=== PATIENT | female | born 1955 | race Caucasian/White ===

== ENCOUNTER 2016-09-01 12:46 | Inpatient (IN) | payer OTHER ==
[~2016-09-01] VITALS: Ht 165.1 cm; Wt 73.5 kg
[~2016-09-01 12:46] MED LIST: ADVIL200 MG PO; AMLODIPINE BESYL5 MG PO; ASPIRIN325 MG PO; ATROVENT H200 INHALA IH; BACTRIM,SEPT1 TABLET PO; BUPROPION XL300 MG PO; CALCIUM 500 +1 EACH PO; CALCIUM 500 MG1 EACH PO; CALCIUM 600 +1 EA12 PO; CALCIUM PO; CLONAZEPAM2 MG PO; CLORAZEPATE DI7.5 MG PO; COLACE100 MG PO; COMPAZINE10 MG PO; DAPSONE25 MG PO; DEXAMETHASONE4 MG PO; ELIQUIS2.5 MG PO; ESCITALOPRAM OX20 MG PO; FOLIC ACID1 MG PO; FUROSEMIDE20 MG PO; FUROSEMIDE80 MG PO; GABAPENTIN600 MG PO; HEPARIN SO5000 UNITS SC; HI-CAL1000 ML PO; K-DUR20 MEQ PO; K-TAB10 MEQ PO; KEFLEX500 MG PO; KLONOPIN0.5 M1 PO; LAMICTAL ODT50 MG PO; LAMICTAL25 MG PO; LASIX40 MG PO; LASIX80 MG PO; LEVOTHYROXINE50 MCG PO; LEVOXYL75 MCG PO; LEXAPRO10 MG PO; LEXAPRO20 MG PO; LOVENOX40 MG/0.4 SC; MIRTAZAPINE15 MG PO; MORPHINE SULFAT15 M1 PO; MORPHINE SULFAT15 MG PO; MORPHINE SULFAT45 MG PO; MORPHINE SULFAT60 MG PO; MS CONTIN,ORAMO30 MG PO; MULTIPLE VITAM1 EACH PO; NEURONTIN100 MG PO; NIFEDIPINE ER30 MG PO; OMEPRAZOLE40 M1 PO; OXYCODONE-ACET1 EACH PO; PERCOCET 5/31 TABLET PO; POLYETHYLENE GL17 GM PO; POTASSIUM CHLO10 ME3 PO; POTASSIUM CHLO20 ME1 PO; POTASSIUM CHLO20 ME2 PO; PRAVASTATIN SOD20 MG PO; PRILOSEC40 MG PO; PROCHLORPERAZIN10 MG PO; REMERON15 M2 PO; REQUIP1 MG PO; REVLIMID10 MG PO; RISPERDAL0.5 MG PO; RISPERIDONE1 MG PO; ROXICODONE5 MG PO; SENOKOT S,PE1 TABLET PO; SODIUM BICARBO325 MG PO; SYNTHROID75 MCG PO; TRAMADOL HCL50 MG PO; TRAZODONE HCL100 MG PO; TYLENOL REGULA325 MG PO; VALIUM5 MG PO; VENLAFAXINE HCL75 M3 PO; VITAMIN D1000 INTUN PO; VITAMIN D31000 UNIT PO; WELLBUTRIN SR150 MG PO; WOMEN'S DAILY1 EAC4 PO; XANAX0.5 MG PO; ZOFRAN4 MG PO; ZOVIRAX400 MG PO
[2016-09-01 13:46] LABS: CHLORIDE 100 mEq/L (99-109); POTASSIUM 3.9 mEq/L (3.7-5.4); SODIUM 137 mEq/L (136-147)
[2016-09-01 13:47] LABS: EOSINOPHIL (%) 0 % (0-5); HEMATOCRIT 27.5 % (36.0-46.0); IMMATURE GRANULOCYTE (%) 4.7 % (0.0-0.7); IMMATURE GRANULOCYTE COUNT 0.3 K/uL; INSTRUMENT ABS NEUTROPHIL CT 5.2 K/uL; LYMPHOCYTE COUNT 0.3 K/uL (1.0-2.8); MCH 39.7 PG (29.0-34.0); MCHC 31.6 G/DL (30.0-36.0); MCV 125.6 FL (83-99); MONOCYTE (%) 2.5 % (3-12); MONOCYTE COUNT 0.2 K/uL (0-0.8); NEUTROPHIL (%) 87.9 % (45-76); NEUTROPHIL COUNT 5.2 K/uL (1.8-6.4); NRBC (%) 0.7 /100 WBC (0-0); RBC DIS.WIDTH-CV 14.8 % (11.8-14.6); RBC DIS.WIDTH-SD 68.3 % (39-53); RED BLOOD COUNT 2.19 M/uL (3.80-5.20)
[2016-09-01 13:48] LABS: GLUCOSE 98 mg/dL (70-99)
[2016-09-01 13:49] LABS: ANION GAP 11 MEQ/L (2-14)
[2016-09-01 13:50] LABS: TOTAL BILIRUBIN 0.5 mg/dL (0.0-1.0)
[2016-09-01 13:51] LABS: ALKALINE PHOSPHATASE 78 IU/L (3-129)
[2016-09-01 13:52] LABS: GFR ESTIMATE (CALCULATED) 41 mL/min/
[2016-09-01 13:53] LABS: UREA NITROGEN (BUN) 26 mg/dL (9-23)
[2016-09-01 14:00] LABS: ADD MIUA? YES; BILIRUBIN NEGATIVE; BLOOD NEGATIVE; COLOR YELLOW ((YELLOW)); GLUCOSE (STRIP) NEGATIVE; KETONES NEGATIVE; LEUKOCYTES NEGATIVE; NITRITE NEGATIVE; PROTEIN (STRIP) NEGATIVE; SPECIFIC GRAVITY 1.008 (1.000-1.030); UROBILINOGEN 0.2 MG/DL (0.2-1.0)
[2016-09-01 14:03] LABS: BACTERIA RARE /HPF; EPITHELIAL CELLS 1+ /HPF; MUCUS NONE SEEN /LPF; RED BLOOD CELLS 0-5 /HPF (0-5); UCUL ADDED? NO; WHITE BLOOD CELLS 0-5 /HPF (0-5)
[2016-09-01 15:02] LABS: ABS NEUTROPHIL COUNT 5.4; ANISOCYTOSIS 2+; ATYPICAL LYMPHOCYTE 1.8 %; BAND NEUTROPHILS 28.9 % (0-8.0); EOSINOPHIL ABS CT 0; IMM.PLATELET FRACTION 9.4 (1-7); LYMPHOCYTES 1.8 % (15.0-45.0); MACROCYTES 1+; METAMYELOCYTES 2.6 %; MICROCYTOSIS 1+; MYELOCYTES 0.9 %; OVALOCYTES 2+; PLAT.SUFFICIENCY SIGNIFICANTDECREASED; POIKILOCYTOSIS 1+; POLYCHROMASIA 1+; SEG.NEUTROPHILS 61.4 % (46.0-76.0); TEAR DROP CELLS 1+; TOXIC GRANULATION 1+
[2016-09-01 15:12] LABS: PLATELET COUNT 14 K/uL (156-360)
[2016-09-01 16:00] LABS: INFLUENZA A VIRAL ANTIGEN NEGATIVE; INFLUENZA B VIRAL ANTIGEN NEGATIVE
[2016-09-01] MEDS ORDERED: [UNRECOGNIZED DRUG - OTHER] TP (16:40)
[2016-09-01] MEDS ORDERED: WOUND TP (16:40)
[2016-09-01] MEDS ORDERED: OMEPRAZOLE40 M1 PO (16:41)
[2016-09-01] MEDS ORDERED: ASPIRIN325 MG PO (16:44)
[2016-09-01] MEDS ORDERED: COLACE100 MG PO (16:46)
[2016-09-01] MEDS ORDERED: NEURONTIN300 MG PO (16:47)
[2016-09-01] MEDS ORDERED: MS CONTIN,ORAMO30 MG PO (16:49)
[2016-09-01] MEDS ORDERED: COMPAZINE10 MG PO (16:50)
[2016-09-01] MEDS ORDERED: DULCOLAX10 MG PR (16:51)
[2016-09-01] MEDS ORDERED: MORPHINE CON20 MG/M1 PO (16:53)
[2016-09-01] MEDS ORDERED: LORAZEPAM0.5 MG PO (16:54)
[2016-09-01] MEDS ORDERED: HYOSCYAMINE0.125 M2 PO (16:55)
[2016-09-01] MEDS ORDERED: FEVERALL650 M1 PR (16:56)
[2016-09-01] MEDS ORDERED: HALOPERIDOL2 MG/1 ML PO (16:56)
[2016-09-01 19:45] VITALS: BP 88/44
[2016-09-02 09:19] LABS: ANION GAP 9 MEQ/L (2-14); CHLORIDE 104 MEQ/L (99-109); POTASSIUM 3.5 MEQ/L (3.7-5.4); SAMPLE HEMOLYSIS CHECK 0; SAMPLE ICTERIC CHECK 0; SAMPLE LIPEMIA CHECK 0; SODIUM 140 MEQ/L (136-147)
[2016-09-02 09:25] LABS: GFR ESTIMATE (CALCULATED) 41 mL/min/; GLUCOSE 111 mg/dL (70-99); UREA NITROGEN (BUN) 25 mg/dL (9-23)
[2016-09-02 13:47] LABS: EOSINOPHIL (%) 0.3 % (0-5); HEMATOCRIT 23.5 % (36.0-46.0); IMMATURE GRANULOCYTE (%) 2.7 % (0.0-0.7); IMMATURE GRANULOCYTE COUNT 0.2 K/uL; INSTRUMENT ABS NEUTROPHIL CT 5.5 K/uL; LYMPHOCYTE COUNT 0.5 K/uL (1.0-2.8); MCH 40.7 PG (29.0-34.0); MCHC 30.6 G/DL (30.0-36.0); MONOCYTE COUNT 0.1 K/uL (0-0.8); NEUTROPHIL (%) 86.6 % (45-76); NEUTROPHIL COUNT 5.5 K/uL (1.8-6.4); NRBC (%) 0.3 /100 WBC (0-0); RBC DIS.WIDTH-CV 15.3 % (11.8-14.6); RBC DIS.WIDTH-SD 74.4 % (39-53); RED BLOOD COUNT 1.77 M/uL (3.80-5.20); WHITE BLOOD COUNT 6.4 K/uL (4.1-10.2)
[2016-09-02 13:50] LABS: IMM.PLATELET FRACTION 7.6 (1-7)
[2016-09-02 13:51] LABS: MCV 132.8 FL (83-99)
[2016-09-02 13:52] LABS: PLATELET COUNT 14 K/uL (156-360)
[2016-09-02 14:20] VITALS: BP 00/00
[2016-09-02] MEDS ORDERED: CEFDINIR300 MG PO (15:47)
== END 2016-09-02 18:40 | disposition hospice, home (50) | DRG 872 ==
LOC: EME → EDBD 12:46 → EDOF 15:42 → 5EAST 19:29
PROVIDERS: Emergency Medicine; Internal Medicine
DX: A41.9 Sepsis, unspecified organism (principal); D61.818 Other pancytopenia; L03.116 Cellulitis of left lower limb; Z51.5 Encounter for palliative care; R50.9 Fever, unspecified; R41.82 Altered mental status, unspecified; F41.8 Other specified anxiety disorders; E03.9 Hypothyroidism, unspecified; E78.5 Hyperlipidemia, unspecified; Z88.2 Allergy status to sulfonamides; Z91.041 Radiographic dye allergy status; Z88.8 Allergy status to other drugs, medicaments and biological substances; Z85.79 Personal history of other malignant neoplasms of lymphoid, hematopoietic and related tissues; Z66 Do not resuscitate; G89.29 Other chronic pain; Z86.718 Personal history of other venous thrombosis and embolism; E87.6 Hypokalemia; N18.9 Chronic kidney disease, unspecified; D53.9 Nutritional anemia, unspecified; L97.519 Non-pressure chronic ulcer of other part of right foot with unspecified severity
CPT/HCPCS: 71010; 80048; 80053; 81003; 83605; 85025; 87040; 87077; 87186; 87502; 87801; 94799; 99281; 99285; J0696; J2270; J7030; J7050

== ENCOUNTER 2016-12-03 23:54 | Emergency (ER) | payer OTHER ==
[~2016-12-03] VITALS: Ht 167.6 cm; Wt 74.9 kg
[~2016-12-03 23:54] MED LIST changes: +CEFDINIR300 MG PO; +DULCOLAX10 MG PR; +FEVERALL650 M1 PR; +HALOPERIDOL2 MG/1 ML PO; +HYOSCYAMINE0.125 M2 PO; +LORAZEPAM0.5 MG PO; +MORPHINE CON20 MG/M1 PO; +NEURONTIN300 MG PO; +WOUND TP; +[UNRECOGNIZED DRUG - OTHER] TP
[2016-12-04 01:30] LABS: CHLORIDE 100 mEq/L (99-109); MCHC 31.8 G/DL (30.0-36.0); MCV 119.7 FL (83-99); NRBC (%) 2.9 /100 WBC (0-0); POTASSIUM 3.6 mEq/L (3.7-5.4); RBC DIS.WIDTH-SD 73.2 % (39-53); RED BLOOD COUNT 2.34 M/uL (3.80-5.20); SODIUM 137 mEq/L (136-147); WHITE BLOOD COUNT 5.4 K/uL (4.1-10.2)
[2016-12-04 01:32] LABS: GLUCOSE 168 mg/dL (70-99)
[2016-12-04 01:33] LABS: ANION GAP 11 MEQ/L (2-14)
[2016-12-04 01:34] LABS: TOTAL BILIRUBIN 0.4 mg/dL (0.0-1.0)
[2016-12-04 01:35] LABS: ALKALINE PHOSPHATASE 50 IU/L (3-129)
[2016-12-04 01:36] LABS: GFR ESTIMATE (CALCULATED) 41 mL/min/
[2016-12-04 01:37] LABS: UREA NITROGEN (BUN) 36 mg/dL (9-23)
[2016-12-04 01:39] LABS: LIPASE 18 U/L (1.0-51.0)
[2016-12-04] MEDS ORDERED: PREDNISONE10 MG PO (02:00)
[2016-12-04] MEDS ORDERED: ACYCLOVIR800 MG PO (02:00)
[2016-12-04] MEDS ORDERED: PERCOCET 5/31 TABLET PO (02:00)
[2016-12-04 02:16] LABS: IMM.PLATELET FRACTION 9.5 (1-7); MEAN PLAT.VOLUME 12.9 uM^3 (9.5-12.4)
[2016-12-04 02:17] LABS: PLATELET COUNT 27 K/uL (156-360)
[2016-12-04 03:45] VITALS: BP 136/72
== END 2016-12-04 04:00 | disposition home or self-care (01) ==
LOC: EME → EDBD 23:54 → EME 12-04 04:00
PROVIDERS: Emergency Medicine
DX: B02.9 Zoster without complications (principal); C90.00 Multiple myeloma not having achieved remission; I12.9 Hypertensive chronic kidney disease with stage 1 through stage 4 chronic kidney disease, or unspecified chronic kidney disease; N18.9 Chronic kidney disease, unspecified; J44.9 Chronic obstructive pulmonary disease, unspecified; E78.5 Hyperlipidemia, unspecified; F17.200 Nicotine dependence, unspecified, uncomplicated
CPT/HCPCS: 80053; 83690; 85027; 99281; 99285; J7512

== ENCOUNTER 2016-12-06 07:57 | Inpatient (IN) | payer OTHER ==
[~2016-12-06] VITALS: Ht 167.6 cm; Wt 78.1 kg
[~2016-12-06 07:57] MED LIST changes: +ACYCLOVIR800 MG PO; +PREDNISONE10 MG PO
[2016-12-06 08:58] LABS: HEMATOCRIT 30.3 % (36.0-46.0); MCH 37.5 PG (29.0-34.0); MCHC 31.4 G/DL (30.0-36.0); MCV 119.8 FL (83-99); RBC DIS.WIDTH-SD 73.6 % (39-53); RED BLOOD COUNT 2.53 M/uL (3.80-5.20)
[2016-12-06 09:06] LABS: CHLORIDE 103 mEq/L (99-109); SODIUM 138 mEq/L (136-147)
[2016-12-06 09:08] LABS: GLUCOSE 187 mg/dL (70-99)
[2016-12-06 09:09] LABS: ANION GAP 14 MEQ/L (2-14)
[2016-12-06 09:11] LABS: ALKALINE PHOSPHATASE 53 IU/L (3-129)
[2016-12-06 09:12] LABS: GFR ESTIMATE (CALCULATED) 33 mL/min/
[2016-12-06 09:13] LABS: POTASSIUM 5.2 mEq/L (3.7-5.4); TOTAL BILIRUBIN 0.8 mg/dL (0.0-1.0); UREA NITROGEN (BUN) 38 mg/dL (9-23)
[2016-12-06 10:51] LABS: IMM.PLATELET FRACTION 10.3 (1-7)
[2016-12-06 11:02] LABS: PLAT.SUFFICIENCY VERY DECREASED
[2016-12-06 11:03] LABS: PLATELET COUNT 16 K/uL (156-360)
[2016-12-06 14:22] LABS: ADD MIUA? YES; BILIRUBIN NEGATIVE; BLOOD MODERATE; COLOR YELLOW ((YELLOW)); GLUCOSE (STRIP) 50; KETONES NEGATIVE; LEUKOCYTES NEGATIVE; NITRITE NEGATIVE; PROTEIN (STRIP) 30; UROBILINOGEN 0.2 MG/DL (0.2-1.0)
[2016-12-06 14:30] LABS: BACTERIA NONE SEEN /HPF; EPITHELIAL CELLS NONE SEEN /HPF; MUCUS TRACE /LPF; RED BLOOD CELLS 0-5 /HPF (0-5); UCUL ADDED? NO; WHITE BLOOD CELLS 0-5 /HPF (0-5)
[2016-12-06] MEDS ORDERED: DUONEB 2.5-0.5 M3 ML AEROSOL (15:08)
[2016-12-06] MEDS ORDERED: DURAGESIC100 MCG TD (15:11)
[2016-12-06] MEDS ORDERED: FENTANYL1 EAC5 TD (15:15)
[2016-12-06] MEDS ORDERED: TRAMADOL HCL50 MG PO (15:16)
[2016-12-06] MEDS ORDERED: DEXAMETHASONE4 MG PO (15:17)
[2016-12-06] MEDS ORDERED: GABAPENTIN300 MG PO (15:18)
[2016-12-06] MEDS ORDERED: LORAZEPAM0.5 MG PO (15:21)
[2016-12-06] MEDS ORDERED: ACETAMINOPHEN325 M1 PO (15:33)
[2016-12-08 07:18] VITALS: BP 153/73
[2016-12-08] MEDS ORDERED: HYOSCYAMINE0.125 M2 PO (14:26)
[2016-12-08] MEDS ORDERED: DUONEB 2.5-0.5 M3 ML AEROSOL (14:27)
[2016-12-08] MEDS ORDERED: FEVERALL650 M1 PR (14:29)
[2016-12-08] MEDS ORDERED: LORAZEPAM0.5 MG PO (14:29)
[2016-12-08] MEDS ORDERED: TRAMADOL HCL50 MG PO (14:29)
[2016-12-08] MEDS ORDERED: ACETAMINOPHEN325 M1 PO (14:29)
[2016-12-08] MEDS ORDERED: FENTANYL1 EAC5 TD (14:53)
[2016-12-08] MEDS ORDERED: FENTANYL1 EAC3 TD (14:53)
== END 2016-12-08 16:47 | disposition hospice, home (50) | DRG 872 ==
LOC: EME 07:57 → EDOF 11:07 → 5EAST 11:07
PROVIDERS: Emergency Medicine
DX: A41.9 Sepsis, unspecified organism (principal); C90.00 Multiple myeloma not having achieved remission; R56.9 Unspecified convulsions; F41.9 Anxiety disorder, unspecified; D69.59 Other secondary thrombocytopenia; E78.5 Hyperlipidemia, unspecified; E03.9 Hypothyroidism, unspecified; B95.2 Enterococcus as the cause of diseases classified elsewhere; J44.9 Chronic obstructive pulmonary disease, unspecified; J32.0 Chronic maxillary sinusitis; Z66 Do not resuscitate; Z51.5 Encounter for palliative care
CPT/HCPCS: 70450; 71010; 80053; 81003; 83605; 85027; 87040; 87077; 87186; 87801; 93005; 94799; 99202; 99281; 99285; J0133; J0696; J1953; J2060; J2270; J3370; J7030; J7050